=== PATIENT | female | born 2000 | race Caucasian/White ===

== ENCOUNTER 2021-07-01 23:17 | Emergency (ER) | payer BC, OTHER ==
[~2021-07-01] VITALS: Ht 165.1 cm; Wt 170.1 kg
[2021-07-01] MEDS ORDERED: ABILIFY10 MG SUBQ (23:47)
[2021-07-01] MEDS ORDERED: NORVASC5 MG PO (23:47)
[2021-07-01] MEDS ORDERED: ARIPIPRAZOLE OD15 MG PO (23:47)
[2021-07-01] MEDS ORDERED: APAP W/CODEINE1 TA2 PO (23:48)
[2021-07-01] MEDS ORDERED: PEPCID40 MG PO (23:48)
[2021-07-01] MEDS ORDERED: REMERON15 M2 PO (23:48)
[2021-07-01] MEDS ORDERED: NORCO5 PO (23:52)
[2021-07-01] MEDS ORDERED: CAL-GEST200 MG PO (23:52)
[2021-07-01] MEDS ORDERED: OLANZAPINE5 M1 PO (23:53)
[2021-07-02 01:30] LABS: ABSOLUTE NEUTROPHILS 7.5 thou/uL (1.4-8.2); BASOPHILS 0.6 % (0.0-2.0); EOSINOPHILS 1.3 % (0.0-3.0); HEMATOCRIT 30.9 % (37.0-47.0); HEMOGLOBIN 9.5 gm/dL (12.0-15.0); LYMPHOCYTES 24.8 % (24.0-44.0); MCH 23.9 pg (26.0-34.0); MCHC 30.7 g/dL (28.0-37.0); MCV 77.9 fL (80.0-100.0); MONOCYTES 8.8 % (1.0-8.0); PLATELET COUNT 345 thou/uL (150-400); POLYS 64.5 % (36.0-66.0); RBC 3.96 mil/uL (4.20-5.00); RDW 17.3 % (10.5-14.5); WBC 11.6 thou/uL (4.0-11.0)
[2021-07-02 01:32] LABS: CREATININE 0.9 mg/dL (0.6-1.0); POTASSIUM 3.9 mmol/L (3.5-5.1)
[2021-07-02 01:44] LABS: AMP/METHAMP Negative (Negative); BARBITURATES Negative (Negative); BENZODIAZEPINES Negative (Negative); COCAINE Negative (Negative); METHADONE Negative (Negative); OPIATES POSITIVE (Negative); PCP Negative (Negative)
[2021-07-02 03:59] VITALS: BP 135/87
== END 2021-07-02 03:50 ==
LOC: ER 23:17
PROVIDERS: Emergency Medicine
DX: T18.9XXA Foreign body of alimentary tract, part unspecified, initial encounter (principal); Z98.890 Other specified postprocedural states; Z79.891 Long term (current) use of opiate analgesic; Z79.899 Other long term (current) drug therapy; Z91.013 Allergy to seafood; X58.XXXA Exposure to other specified factors, initial encounter; Y93.89 Activity, other specified; Y92.89 Other specified places as the place of occurrence of the external cause; Y99.8 Other external cause status

== ENCOUNTER 2021-07-02 19:44 | Inpatient (IN) | payer BC, OTHER ==
[~2021-07-02] VITALS: Ht 165.1 cm; Wt 160.7 kg
[~2021-07-02 19:44] MED LIST: ABILIFY10 MG SUBQ; APAP W/CODEINE1 TA2 PO; ARIPIPRAZOLE OD15 MG PO; CAL-GEST200 MG PO; NORCO5 PO; NORVASC5 MG PO; OLANZAPINE5 M1 PO; PEPCID40 MG PO; REMERON15 M2 PO
[2021-07-02 19:45] VITALS: BP 134/92
--- NOTE | 2021-07-03 03:09 | NUR ---
PERMISSION TO TREAT OBTAINED FROM [facility]
[2021-07-03 03:12] VITALS: BP 142/88
[2021-07-03 03:18] VITALS: BP 126/68
--- NOTE | 2021-07-03 05:24 | NUR ---
PT WAS ADMITTED TO THE UNIT FROM THE ER IN A STABLE CONDITION.ADMISSION HX,EDUCATION AND ASSESSMENT COMPLETED.PT NPO SINCE ADMIT.PT HAS A R FEMORAL CENTRAL LINE ACCESS,PT NOT SUPPOSED TO GET OUT OF BED DUE TO LINE PLACEMENT.NO C/O N/V NOTED SINCE ADMIT.PT WITH HX OF SLEEP APNEA,CPAP TO HER BEDSIDE.DEDRICK NOTED FROM BUSINESS ANALYSIS SPECIALIST TO CONSULT IV TEAM FOR IV PERIPHERAL PLACEMENT,WILL NOTIFY AM NURSE TO FOLLOW UP ON.PT DOES NOT MAKE HEALTHCARE DECISIONS FOR HERSELF,SHE HAS A GUARDIAN WHO DOES.CALL LIGHT WITHIN REACH.
[2021-07-03 09:48] LABS: HEMATOCRIT 28.8 % (37.0-47.0); HEMOGLOBIN 8.8 gm/dL (12.0-15.0); MCHC 30.6 g/dL (28.0-37.0); MCV 78.2 fL (80.0-100.0); RBC 3.68 mil/uL (4.20-5.00); RDW 17.4 % (10.5-14.5)
--- NOTE | 2021-07-03 09:56 | NUR ---
ASSUMED PT CARE AROUND 0700. PT ALERT X ORIENTED X 4. ON ROOM AIR. IV CENTRAL LINE, RT GROIN, TRIPPLE LUMEN. PT NOT COMFORTABLE WITH CENTRAL LINE, BODS DEVELOPER ASKED TO CALL IV TEAM TO PUT A PERIPHERAL LINE THE PT WAS A HARD STICK, BUT THE DR HAS PUT AN ORDER FOR MIDLINE.PT HAS CPAP FROM HOME. PAIN OF 6 NOTED AND PAIN MEDICINE GIVEN, PAIN PARTIALLY RELIEVED. NPO SINCE MIDNIGHT. GI CONSULTED. CALL LIGHT IN REACH, USES BED PADRON AT BEDSIDE. FALL PRECAUTION IN PLACE. WILL CONTINUE TO MONITOR.
--- NOTE | 2021-07-03 12:52 | NUR ---
Case opened to follow for dc planning. Machine Cementer visited with pt at bedside. She is alert and oriented x4. She indicates she lives at [facility] [facility] and her aunt Joanna is her legal guardian. She is here for foriegn body removal and suffers from PICA/OCD/BIPOLAR. Message left for Joanna. [facility] is holding her room and can accept her back when ready. They are faxing a copy of the guardianship docment to cm today. Possible surgery for removal. The pt is indep with gait and basic adl's. Chappell Cisco manages her medications and meals and provides supervision. Will follow.
[2021-07-03 16:12] VITALS: BP 148/95
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
--- NOTE | 2021-07-07 18:06 | PATH ---
[facility] [address] [place] [address] PATHOLOGY RPT PROCEDURE Name: EMMA CABRERA Room #: 437-P [facility] IN M.R.#: [id number] Admission: 07/02/21 Date of : 01 Discharge: 07/03/21 Report #: [id number] Path Case #: [id number] [facility] Accession Number: [id number] . 01 Material submitted: . body - FOREIGN BODY . 01 Clinical history: . EGD FOREIGN BODY . 02 Diagnosis: Foreign body, removal: - 13.2 cm partial plastic cutlery knife (gross exam only). (IUV:pit; 07/07/2021) . QTP 07/07/2021 1210 Local . 02 Electronically signed: . Jacquelyn White MD, Pathologist NPI- [id number] . 01 Gross description: . The specimen is received fresh, labeled "Emma Jones, foreign body". Received is a segment of black plastic, consistent with a partial fragment of knife cutlery, measuring 13.2 cm in length and ranges in diameter from 1.0-1.6 cm. A gross photograph is taken. Sections are not submitted. (CAA; 07/04/2021) QA/[facility] 07/04/2021 0838 Local . 02 Pathologist provided ICD-10: T18.9XXA . 02 CPT . 062671 Specimen Comment: A courtesy copy of this report has been sent to [phone] Specimen Comment: [phone] Specimen Comment: Report sent to / DR MAGDALENO Performed at: [address], [place] [id number] MD Ayo Nickerson MD Phone: [phone] Performed at: [address] [id number] [address] [address] PATHOLOGY RPT PROCEDURE Name: EMMA CABRERA Room #: 437-P DIS IN M.R.#: [id number] Admission: 07/02/21 Date of : 01 Discharge: 07/03/21 Report #: [id number] Path Case #: [id number] MD Jacquelyn White MD Phone: [phone]
== END 2021-07-03 18:00 | DRG 394 ==
LOC: ER 19:44 → EROBS 22:37 → 4S 22:37
PROVIDERS: Emergency Medicine; ADMIT Hospitalist; ATTEND Hospitalist
PROC: 06HY33Z Insertion of Infusion Device into Lower Vein, Percutaneous Approach (ICD-10-PCS; principal; 2021-07-03)
PROC: 0DC68ZZ Extirpation of Matter from Stomach, Via Natural or Artificial Opening Endoscopic (ICD-10-PCS; 2021-07-03)
DX: T18.2XXA Foreign body in stomach, initial encounter (principal); Z68.43 Body mass index [BMI] 50.0-59.9, adult; R45.851 Suicidal ideations; F91.3 Oppositional defiant disorder; F42.9 Obsessive-compulsive disorder, unspecified; F32.9 Major depressive disorder, single episode, unspecified; F50.89 Other specified eating disorder; F43.10 Post-traumatic stress disorder, unspecified; I10 Essential (primary) hypertension; G47.33 Obstructive sleep apnea (adult) (pediatric); E66.01 Morbid (severe) obesity due to excess calories; X58.XXXA Exposure to other specified factors, initial encounter; F60.3 Borderline personality disorder; F28 Other psychotic disorder not due to a substance or known physiological condition; Z20.822 Contact with and (suspected) exposure to COVID-19; Z79.899 Other long term (current) drug therapy; Z91.013 Allergy to seafood; Z83.3 Family history of diabetes mellitus; Z80.9 Family history of malignant neoplasm, unspecified; Z81.8 Family history of other mental and behavioral disorders; Y93.89 Activity, other specified; Y92.89 Other specified places as the place of occurrence of the external cause; Y99.8 Other external cause status
CPT/HCPCS: 62110; 62900; 70005

== ENCOUNTER 2021-07-05 12:39 | Inpatient (IN) | payer BC, OTHER ==
[~2021-07-05] VITALS: Ht 165.1 cm; Wt 159.2 kg
--- NOTE | ~2021-07-05 | HC ---
[facility] [place] [address] CONSULTATION Name: JAVI CABRERA Room #: 203-P ADM IN M.R.#: [id number] Admission: 07/05/21 Attend Phys: Bertin Collins MD Discharge: Date of : 01 Report #: [id number] THIS REPORT FOR: cc: Edward Min MD, Michael H. MD Sturgeon, John B. MD ~ cc: Kaden Beal DO DATE OF SERVICE: 07/05/2021 REASON FOR CONSULTATION: Ingestion of foreign body. HISTORY OF PRESENT ILLNESS: The patient is a 21-year-old female who presented to the Emergency Room for evaluation of abdominal pain, hematemesis, and blood in the stool. She apparently underwent upper endoscopy 2 days ago by my partner, Dr. Beal. At that time, he was able to retrieve a plastic knife. There is no evidence of any abnormalities noted beyond that. In speaking with Dr. Beal before I came over here, there was no history of ingestion of any other foreign bodies. The patient apparently got a hold of the metal nasal piece from seven masks as well as 2 or 3 hypodermic needles and an IV catheter. She consumed these over a 24-hour period with the last one eaten about 24 hours ago. She states she had hematemesis at her nursing facility yesterday evening. This morning around 2 a.m., she began to pass blood in the stool. Since that time, she has had sharp epigastric abdominal pain. She denies fever, chills, or sweats. No history of peptic ulcer, pancreatic, or liver disease. For past medical history, social history, allergies, etc., please see the most recent GI consult. PHYSICAL EXAMINATION: GENERAL: The patient is awake and alert. I saw her in the Emergency Room. VITAL SIGNS: Temperature 36.4, blood pressure 140/88, respirations 20, pulse 116. She is awake and alert. She seems comfortable, in no acute distress. HEENT: ____ Extraocular movements are intact. No scleral icterus or injection. CHEST: Clear to auscultation bilaterally. HEART: Regular rate and rhythm without murmur. No S3. ABDOMEN: Obese. Bowel sounds present. There is mild tenderness in the epigastrium. No guarding or rebound. No mass or hepatosplenomegaly. EXTREMITIES: Exhibited edema bilaterally. RECTAL: Not performed at this time. LABORATORY DATA: The hemoglobin is 8.8. White count 8900, platelets 383. The hemoglobin is similar to discharge 2 days ago. Sodium is 149, chloride 114. Lipase low at 66. I reviewed the KUB obtained during the ER visit today. There are multiple metallic foreign bodies scattered throughout the abdomen. No free air noted. There is a nonobstructive bowel gas pattern. [address] [address] CONSULTATION Name: AROLDO LEONELJAVI DILLON Room #: 203-P [facility] IN M.R.#: [id number] Admission: 07/05/21 Attend Phys: Bertin Collins MD Discharge: Date of : 01 Report #: [id number] ASSESSMENT AND PLAN: 1. Foreign body ingestion. 2. Hematemesis. 3. Epigastric abdominal pain. 4. Blood in the stool. The patient exhibits stable vital signs and is afebrile. Her abdominal exam is unremarkable. She has ingested multiple sharp objects, which would increase her risk of perforation. I understand, General Surgery has been consulted. RECOMMENDATIONS: We will plan for upper endoscopy this afternoon. Frankly, I doubt there will be anything left in the upper gut that can be retrieved. According to the patient, she last ingested a foreign body around 24 hours ago. I understand, the patient needs to be admitted to the intensive care unit for observation. Under the circumstances, that certainly seems reasonable. By: [id number] Giuliano Quinteros MD /nt
--- NOTE | ~2021-07-05 | O ---
[facility] [place] [address] OPERATIVE REPORT Name: JAVI CABRERA Room #: 203-P ADM IN M.R.#: [id number] Admission: 07/05/21 Attend Phys: Bertin Collins MD Discharge: Date of : 01 Report #: [id number] THIS REPORT FOR: cc: Edward Min MD, Michael H. MD Sturgeon, John B. MD ~ cc: Kaden Beal DO DATE OF SERVICE: 07/05/2021 PREOPERATIVE DIAGNOSIS: Ingested foreign body. POSTOPERATIVE DIAGNOSIS: Ingested foreign body. PROCEDURE: EGD with placement of an overtube and removal of 1 gastric and 1 duodenal foreign body. INDICATIONS: The patient is a 21-year-old female who consumed metal pieces that are used to provide stability for facemasks as well as one IV catheter with a needle approximately 24 hours ago. A KUB showed evidence of these foreign body scattered throughout the abdomen. She also claims to have swallowed two additional hypodermic needles. This procedure is being performed to assess the upper GI tract. She apparently had some hematemesis and some blood in the stool as well. The benefits and risks of procedure were explained and informed written consent was obtained. The patient apparently has a guardian. Despite multiple attempts, it was not possible to reach the guardian. The patient stated she had given consent for procedures before. I believe this is medically necessary as did the rest of the team. The patient was brought to the operating room. She was sedated and intubated per the department of anesthesia. A bite block was placed. She was in the supine position with the head of the bed slightly raised. The Fujinon endoscope was inserted through the mouth into the upper esophagus under direct vision. FINDINGS: The esophagus was normal without erythema, erosion or ulceration. The stomach was entered and examined. There appeared to be an IV catheter stylet with a needle near the junction of the antrum and body located anteriorly. Retroflex exam of the gastric cardia was negative for hiatal hernia or mass. The duodenal bulb and sweep were entered and examined. A white plastic covered metal piece consistent with her history of having swallowed similar foreign object was seen in the second portion of the duodenum. Rat tooth forceps were passed down the scope. This was utilized to grasp the foreign body. This was then pulled into the stomach. After repositioning and reattaching the forceps to the foreign body, the scope, forceps and foreign body [address] [address] OPERATIVE REPORT Name: JAVI CABRERA Room #: 203-P [facility] IN .R.#: [id number] Admission: 07/05/21 Attend Phys: Bertin Collins MD Discharge: Date of : 01 Report #: [id number] were removed from the patient. At that point, attention was then turned to extracting the needle catheter. An overtube was attempted to be placed with the standard kit. Unfortunately, it was not possible to do this. I removed the inner lining of the overtube and placed a 42-Hebrew Navarro dilator instead. This allowed for successful placement of the overtube into the stomach. Three different devices including a 4-prong grasping device, snare and Rat tooth forceps were all used in an attempt to remove the foreign body. This was extremely difficult achieving proper alignment of the plastic blunt end of the catheter into the tube. Finally, this was accomplished and the foreign body, scope and the snare were withdrawn through the overtube and extracted. The overtube was removed. The endoscope was inserted through the mouth into the esophagus under direct vision. There did not appear to be any obvious perforation. There was patchy erythema and small amount of bleeding where the needle had scraped the inside lining of the gastric wall. At that point, it was decided to conclude the procedure. The scope was withdrawn. She tolerated this without apparent complications. IMPRESSION: 1. Normal esophagus. 2. Foreign body in the stomach. 3. Foreign body in the duodenum. 4. Successful removal of duodenal foreign body. 5. Successful placement of an overtube into the stomach. 6. Successful extraction of the needle catheter through the overtube. RECOMMENDATIONS: I understand that the patient needs to be admitted and observed in a monitored bed. I recommend serial abdominal exams and films. There were still multiple foreign bodies noted on the plain film scattered throughout the abdomen. I removed all the foreign bodies I could find on this exam to the second portion of the duodenum. Surgical consultation has been obtained. By: [id number] Giuliano Quinteros MD /nt
[2021-07-05 12:50] VITALS: BP 140/88
[2021-07-05 13:17] LABS: URINE BILIRUBIN NEGATIVE (Negative); URINE BLOOD NEGATIVE (Negative); URINE CLARITY CLEAR; URINE COLOR YELLOW; URINE GLUCOSE-RANDOM* NEGATIVE (Negative); URINE KETONES NEGATIVE (Negative); URINE LEUKOCYTES-REFLEX NEGATIVE (Negative); URINE NITRITE-REFLEX NEGATIVE (Negative); URINE PROTEIN (DIPSTICK) NEGATIVE (Negative); URINE UROBILINOGEN 0.2 E.U./dl (0.2-1.0)
[2021-07-05 13:38] LABS: ABSOLUTE NEUTROPHILS 6.2 thou/uL (1.4-8.2); BASOPHILS 0.5 % (0.0-2.0); HEMATOCRIT 29.1 % (37.0-47.0); LYMPHOCYTES 21.1 % (24.0-44.0); MCH 24.2 pg (26.0-34.0); MCHC 31.1 g/dL (28.0-37.0); MCV 77.8 fL (80.0-100.0); MONOCYTES 7.2 % (1.0-8.0); PLATELET COUNT 383 thou/uL (150-400); POLYS 69.2 % (36.0-66.0); RBC 3.74 mil/uL (4.20-5.00); RDW 17.5 % (10.5-14.5); WBC 8.9 thou/uL (4.0-11.0)
[2021-07-05 13:47] LABS: CALCIUM 8.8 mg/dL (8.5-10.1); CREATININE 0.9 mg/dL (0.6-1.0); POTASSIUM 3.8 mmol/L (3.5-5.1)
[2021-07-05 13:50] LABS: ALBUMIN 3.5 g/dL (3.4-5.0); TOTAL BILIRUBIN 0.3 mg/dL (0.2-1.0); TOTAL PROTEIN 7.2 g/dL (6.4-8.2)
[2021-07-05 16:27] LABS: HEMATOCRIT 28.4 % (37.0-47.0); HEMOGLOBIN 8.8 gm/dL (12.0-15.0)
--- NOTE | 2021-07-05 16:30 | NUR ---
THIS RN SPOKE WITH PT'S AUNT, JEAN-PIERREYAZMIN. JEAN-PIERRE KENDRICK GAVE CONSENT FOR ALL MEDICAL TREATMENT TO BE DONE AT OUR FACILITY. THIS ALSO WAS VERIFIED THE [facility] VIA PHONE CONVERSATION WITH AUNT.
[2021-07-05 17:49] VITALS: BP 140/88
[2021-07-05 20:23] VITALS: BP 154/85
[2021-07-06 00:56] LABS: HEMATOCRIT 29.8 % (37.0-47.0); HEMOGLOBIN 9.5 gm/dL (12.0-15.0)
--- NOTE | 2021-07-06 01:58 | NUR ---
PT ARRIVED ON UNIT FROM PACU AT 1999. ADMITTED FOR FOREIGN BODY INGESTION. EDG PERFORMED TO REMOVED 2 FOREIGN BODIES. ONE ON ONE. AMBULATES TO BATHROOM WITH STANDBY. FENTANYL PROVIDING PAIN RELIEF. RESTING COMFORTABLY. NO NEEDS VOICED. CALL LIGHT WITHIN REACH. FREQUENT OBSERVATION.
--- NOTE | 2021-07-06 04:00 | NUR ---
PT LYING IN BED. LORTAB PROVIDING PAIN RELIEF. RESTING COMFORTABLY. NO NEEDS VOICED. CALL LIGHT WITHIN REACH. FREQUENT OBSERVATION.
[2021-07-06 05:16] VITALS: BP 125/51
[2021-07-06 07:37] VITALS: BP 148/105
[2021-07-06 08:11] LABS: HEMATOCRIT 32.3 % (37.0-47.0); HEMOGLOBIN 10.1 gm/dL (12.0-15.0)
[2021-07-06 11:19] VITALS: BP 140/93
[2021-07-06 15:08] VITALS: BP 133/88
[2021-07-06 16:12] LABS: HEMATOCRIT 31.8 % (37.0-47.0); HEMOGLOBIN 9.9 gm/dL (12.0-15.0)
--- NOTE | 2021-07-06 18:44 | NUR ---
PT HAS HAD THREE IV TODAY AND NON WOULD STAY FOR ANYTIME. KEEPS COMING OFF. DR CASTILLO NOTIFIED THAT IVs ARE OUT AND IV TEAM HAS GONE HOME. SHE IS IN GOOD MOOD. HAS NOT BEEN NOTED TO INGEST FOREIGN OBJECT AT THIS TIME. HAS NOT BEEN NOTED EITHER TO EXCRETE ANY FOREIGN OBJECT. WILL CONT WITH PLAN OF CARE.
[2021-07-06 19:06] VITALS: BP 124/84
[2021-07-07 01:19] LABS: HEMATOCRIT 28.6 % (37.0-47.0); HEMOGLOBIN 9.1 gm/dL (12.0-15.0)
[2021-07-07 04:41] VITALS: BP 95/57
[2021-07-07 08:05] VITALS: BP 136/87
[2021-07-07 09:10] LABS: CALCIUM 9.1 mg/dL (8.5-10.1); POTASSIUM 3.3 mmol/L (3.5-5.1)
--- NOTE | 2021-07-07 10:10 | NUR ---
RD consult for obesity. Recurrent admission for intentional ingestion of foreign body. Surgical intervention. Has swallowed metal objects, iv needles, tubing, plastic silverware. Severe mental health issues with PICA, PTSD, borderline personality disorder, ulcers with past surgical interventions. Pt will need 1:1 sitter especially with meals to ensure safety. Low nutrition risk otherwise
[2021-07-07 11:15] VITALS: BP 118/75
[2021-07-07 15:20] VITALS: BP 131/87
--- NOTE | 2021-07-07 17:11 | NUR ---
PT ON STRICT 1 ON . PT SWALLOWED PLASTIC KNIFE EARLY WEDNESDAY MORNING (07/07). PT GOT AN EGD TODAY AND PLASTIC KNIFE WAS REMOVED. MOVED PT FROM NPO TO FINGER FOOD DIET WITH NO UTENSILS. PT COOPERATIVE, BUT STATES SHE CANT HELP EATING FOREIGN OBJECTS. JEAN-PIERRE, PT'S LEGAL GUARDIAN, AT BEDSIDE TODAY. IV TEAM GAINED IV ACCESS AFTER MULTIPLE ATTEMPS. FENTANYL GIVEN FOR ABDOMINAL PAIN AND PROVIDED PARTIAL PAIN RELIEF.
[2021-07-07 17:18] LABS: HEMATOCRIT 30.7 % (37.0-47.0)
[2021-07-07 17:28] LABS: CALCIUM 9.2 mg/dL (8.5-10.1)
--- NOTE | 2021-07-07 18:23 | NUR ---
Patient resides at [facility] in [facility]. Patient with recent dc from hospital 07/03/21 for same diagnosis. Patient admits with ingesting foreign body ingestion and GI Bleed. Patient has a legal guardian, aunt Joanna. Dr Maximo neves patient. Plan family meeting tomorrow at 10;00am. Patient may need inpatient [facility] treatment. casemgt following.
[2021-07-07 21:16] VITALS: BP 132/83
[2021-07-08 07:28] VITALS: BP 127/57
[2021-07-08 11:46] VITALS: BP 148/88
--- NOTE | 2021-07-08 12:21 | NUR ---
Assumed care of pt this AM. Pt is A&O x4, on RA, denies any chest pain. Pt c/o abdominal pain secondary to foreign body ingestion. Pt passed large BM this AM w/ twist tie present. Psych consulted & saw pt today- possibility of in patient tx needed. GI ordered KUB for today, will follow results. All items out of room & 1:[address] Will continue to monitor pt needs throughout day.
[2021-07-08 15:00] VITALS: BP 144/79
--- NOTE | 2021-07-08 16:07 | NUR ---
Family meeting today with Dr Marsh, [facility], Pharmacy, Guardian and patient. Discussed recent hospitalization within a month. Discussed medication management, Rediscover, psychiatrist at [facility] and [facility]. Dr Marsh with recommendation of inpatient psych treatment for medication management. Guardian reports she wants to sp with Sourav at [facility], patient prior to deciding in inpatient treatment. Guardian appears pleased with [facility] and does not want to loose bed at facility. She also reports rec inpatient psych tx and has not helped her situation in past. Called and sp with Sourav at [facility]. He reports he is aware phys hotlined facility. he is very upset. He reports to call him tomorrow if he will accept patient for return to facility. [facility]
[2021-07-08 19:52] VITALS: BP 117/64
--- NOTE | 2021-07-09 03:49 | NUR ---
pt sleeping and called out saying iv was out, coban was removed sl was rolled up in dressing and stuck to arm observed that sl all parts intactand dressing with coban, notified Jessica Thomas and iv protonix changed to po for am and iv placement to be re-evaluated in am, no c/o pain this shift, vss, sitter in room, will con't to monitor per ppoc.
[2021-07-09 05:00] VITALS: BP 128/76
--- NOTE | 2021-07-09 11:06 | NUR ---
Spoke with Joanna Martin to discuss dc planning. Joanna is aware Alesha Regnia hotlined and state workers are in the building now. Sapphire Worthington [phone] and Claudia Groves [phone]. Mario has no concerns with Alesha irby she is agreeable to facility. She is unsure if patient can return while state investigating. Left message for both workers. casemgt following.
--- NOTE | 2021-07-09 11:37 | NUR ---
Assumed care of pt this AM. Pt is A&O x4, on room air. Denies any current pain. No BM since yesterday. Pt states that "state is at [facility]" and that there is a possibility she won't be able to go back. Pt states she is frustrated w/ psych & is worried that she won't be able to return. Pt has group call today on zoom. Case management following. Will continue to assess pt needs.
--- NOTE | 2021-07-09 16:43 | NUR ---
Spoke with Joanna ospina for patient who reports due to hotline call state workers at [facility]. Joanna has spoken to caseworkers from [facility]. She has spoken with Sourav. She would like another day in hospital prior to dc to [facility]. Sp with Sourav at [facility] who reports due to State in building prefer dc in am. he is accepting of patients return. State workers have not returned call to this casemgr. Phys agreeable to dc in am. Psychiatrist at facility will see patient at facility within 24 hours. All are in agreement with dc in a.m. Updated patient.
[2021-07-09 20:19] VITALS: BP 144/83
--- NOTE | 2021-07-09 23:11 | HC ---
[facility] [place] [address] CONSULTATION Name: JAVI CABRERA Room #: 203-P ADM IN M.R.#: [id number] Admission: 07/05/21 Attend Phys: Bertin Collins MD Discharge: Date of : 01 Report #: [id number] THIS REPORT FOR: cc: Edward Min MD,David Lomas MD, DO ~ DATE OF SERVICE: 07/07/2021 PSYCHIATRIC CONSULTATION PRIMARY ATTENDING: Dr. Bertin Collins ATTENDING PSYCHIATRIST: David Marsh D.O. The patient has several specialists and consultants including Gastroenterology and General Surgery. REASON FOR CONSULTATION: Repeated serial ingestion of foreign bodies. The patient is under [place] guardianship and conservatorship. The patient also is placed at [facility] at [facility] with reported 1:1 sitters. SOURCES OF INFORMATION: Telephone conversation with the guardian and interview with the patient and conversation with various hospital staff. CHIEF COMPLAINT: Unspecified. HISTORY OF PRESENT ILLNESS: This is a 21-year-old morbidly obese female who is a [facility]en out of [facility]. The patient is readmitted due to swallowing zip ties and needles. Specifically in the ER, it was noted 7 zip ties, 3 IV needles, IV tubing. The patient is reported with a history of pica. She denies SI, HI. She was brought in by [facility]. The patient reports having these belongings one at [employer] then got left in bed. The patient will grab stuff within reach of her. This is interesting. The patient reported throwing up and was not having bloody stools, abdominal pain, unclear exactly if she was at [facility] in between her discharge from [facility]. The patient had a few small bites of scrambled eggs and states she got her last Abilify shot yesterday, so it sounds like she did get the Abilify Maintena. PAST MEDICAL HISTORY: Includes hypertension, morbid obesity. PSYCHIATRIC HISTORY: Pica, PTSD, borderline personality, obsessive compulsive disorder. HOME MEDICATIONS: Amlodipine 5 mg daily, Abilify Maintena 400 mg monthly. She was getting 50 mg daily, but have been discontinued; Pepcid 40 mg daily; Remeron 15 mg at bedtime. She also has obstructive sleep apnea. [facility] [address] [place] [address] CONSULTATION Name: JAVI CABRERA Room #: 203-P [facility] IN .R.#: [id number] Admission: 07/05/21 Attend Phys: Bertin Collins MD Discharge: Date of : 01 Report #: [id number] ALLERGIES: SHELLFISH. SOCIAL HISTORY: Denies cigarettes. Denies alcohol or tobacco use. REVIEW OF SYSTEMS: From the ER: GENERAL: No fever or chills. Normal appetite, no weakness. Denied weight gain or loss. HEENT: Denies headache or dizziness. Denies congestion, no difficulty swallowing, no throat pain. CARDIOVASCULAR: No chest pain, palpitations, no syncope. RESPIRATORY: No shortness of breath or cough. No wheezing. GASTROINTESTINAL: Positive abdominal pain, positive hematemesis. Denies constipation, diarrhea, nausea or vomiting. MUSCULOSKELETAL: Denies back, muscle or joint pain. NEUROLOGIC: Denies numbness, tingling or weakness. SKIN: No rash or lesions. ENDOCRINE: Denies diabetes or thyroid disease. HEMATOLOGIC: No bruising, bleeding or anemia. Weight is 159.21 kilos. I asked the patient why her aunt is her guardian, she states her mother when she was 4 from UTI related sepsis. She had another aunt that was her guardian and she gave that up when she attempted suicide later on. So this is actually the second aunt who is now her guardian. Hematology today, hemoglobin 9.1, hematocrit 28.6. Chemistry today, sodium 147, potassium 3.3, chloride 109, bicarbonate 26, anion gap 12, BUN 10, creatinine 1.0, estimated GFR 71, glucose 114, calcium 9.1, AST 24, ALT 41, alkaline phosphatase 81, total protein 7.2, albumin 3.5, lipase 66. Urinalysis was negative. HCG was negative. COVID-19 serology on 07/05 was negative. IMAGING: This admission, KUB x-ray this morning showed 2 metallic paper clip foreign bodies were present in the right mid abdomen, likely in the hepatic flexure of the colon and the proximal transverse colon, 07/06 showed two paper clip foreign bodies were present in the right lower quadrant, likely in the ascending colon, soft tissue mass x-ray was unremarkable. I believe she did have an EGD on 07/05 says foreign body in the stomach, foreign body in the duodenum, successful removal of duodenal foreign bodies, successful placement of overtube into the stomach. Successful extraction of a needle catheter through the overtube. PHYSICAL EXAMINATION: VITAL SIGNS: Today, temperature 36.7, pulse 100, respirations 18, BP 136/87, O2 sat 99%. MUSCULOSKELETAL: Seated on side of bed, in hospital gown. There was a cell phone cord in the room, the patient had her cell phone there. [facility] [address] [place] [address] CONSULTATION Name: JAVI CABRERA Room #: 203-P [facility] IN .R.#: [id number] Admission: 07/05/21 Attend Phys: Bertin Collins MD Discharge: Date of : 01 Report #: [id number] GENERAL: Ill appearing, unkempt female appearing older than stated age. MENTAL STATUS EXAMINATION: This is a well-developed, morbidly obese female. Attention fair. Concentration fair. Speech: Normal rate, volume, and tone. Thought process: Linear and goal oriented. Thought content: Focused on the present. mood/affect- "ok", constricted incongruent Denied suicidal or homicidal ideation, auditory, visual, or tactile hallucinations. Denied helplessness or hopelessness. Memory was not formally tested. Insight is impaired, judgment is impaired. Fund of knowledge well below average. FORMULATION: A 21-year-old morbidly obese female admitted after repeat foreign body ingestion. The patient is under guardianship, supposedly on 1:1. DIAGNOSES: Obsessive compulsive disorder, pica by history, posttraumatic stress disorder by history, numerous medical comorbidities including morbid obesity, hypertension, obstructive sleep apnea and anemia. PLAN: The patient is medically admitted under authority of a guardian at [facility] to [facility]. Continue with general medical gastroenterology, general surgery consultation. I agree with waiting to make sure foreign body is passed or otherwise removed in an operative fashion if necessary. CURRENT MEDICATIONS: Include IV Protonix, fentanyl p.r.n., IV 25mcg, ondansetron, famotidine. I agree with keeping her medication regimen simplified. I did speak with her guardian, Jimmy, who is actually driving to [place] this afternoon. We tentatively have a family meeting scheduled for 10:00 a.m. tomorrow. The patient is clearly not acclimating to her new placement at [facility] at [facility]. I also have concerns about the ability of caregivers to keep her safe as these foreign bodies can kill certainly. I will go ahead and outline this case to [facility]. Report given to ED brace end [facility] former [facility] at [facility]. I will see the patient tomorrow and meet with her and her guardian and you know at this point, I would recommend psychiatric hospitalization once medically stable. Time spent on this case is well over 60 minutes, greater than 50% of time was spent on counseling and coordination of care in the CCU. <ELECTRONICALLY SIGNED> By: David Marsh DO 07/09/21 [id number] David Marsh DO /nt
--- NOTE | 2021-07-10 05:06 | NUR ---
PT WITH 1 TO 1 SITTER, RESTING QUIETLY IN ROOM, WEARS SPAP AT NOC, NO IV ACESS, NO C/O PAIN, VSS, WILL CON'T TO MONITOR PER PPOC.
[2021-07-10 06:19] VITALS: BP 108/61
[2021-07-10 07:54] VITALS: BP 149/89
--- NOTE | 2021-07-10 10:20 | NUR ---
Assumed care of pt this AM. Pt is A&O x4, ready to discharge. On RA. One to one observation in place. Pt denies any needs at this time. 's working on pts discharge this AM. Will continue to monitor.
[2021-07-10] MEDS ORDERED: OLANZAPINE ODT5 MG SUBLING (10:23)
--- NOTE | 2021-07-10 10:48 | NUR ---
Per unit RN, she rec'd call from Sourav and he will be here to roll picker the pt at 11am. Chart copy and orders are ready to be sent with the pt. Nursing to call report. Pt's Aunt Joanna is aware and agreeable for [facility] to [facility]. Pt awaiting Sourav to go "home". DC orders faxed to the facility as well.
--- NOTE | 2021-07-10 11:16 | NUR ---
DISCHARGE NOTE: IV & tele previously discharged. Chart copy & report given to Sourav from [facility]. Discharge packet given, all questions answered. Pt wheeled to ER entrance by nurse to leave via car w/ facility.
== END 2021-07-10 14:26 | DRG 394 ==
LOC: ER 12:39 → 2N 14:44 → EROBS 14:44 → 2N 17:25
PROVIDERS: Physician Assistant; ADMIT Hospitalist; ATTEND Hospitalist
PROC: 0DC68ZZ Extirpation of Matter from Stomach, Via Natural or Artificial Opening Endoscopic (ICD-10-PCS; principal; 2021-07-05)
PROC: 0DC98ZZ Extirpation of Matter from Duodenum, Via Natural or Artificial Opening Endoscopic (ICD-10-PCS; principal; 2021-07-05)
DX: T18.2XXA Foreign body in stomach, initial encounter (principal); D62 Acute posthemorrhagic anemia; Z68.43 Body mass index [BMI] 50.0-59.9, adult; Z20.822 Contact with and (suspected) exposure to COVID-19; Z91.013 Allergy to seafood; D50.9 Iron deficiency anemia, unspecified; I10 Essential (primary) hypertension; Z79.899 Other long term (current) drug therapy; F42.9 Obsessive-compulsive disorder, unspecified; F43.10 Post-traumatic stress disorder, unspecified; E66.9 Obesity, unspecified; F50.89 Other specified eating disorder; K29.70 Gastritis, unspecified, without bleeding; X58.XXXA Exposure to other specified factors, initial encounter; Y93.89 Activity, other specified; Y92.89 Other specified places as the place of occurrence of the external cause; Y99.8 Other external cause status
CPT/HCPCS: 10078; 10081; 10194; 62110; 62900; 65130; 70005